=== PATIENT | male | born 1955 | race Caucasian/White ===

== ENCOUNTER 2017-01-09 12:05 | Inpatient (IN) ==
[2017-01-09] MEDS ORDERED: CeFAZolin Pre 2,000 MG/100 ML 2,000 MG/100 ML BAG IVPB ONE (13:02)
[2017-01-09] MEDS ORDERED: CeFAZolin Pre 3,000 MG/100 ML 3,000 MG/100 ML BAG IVPB ONE (13:08)
[2017-01-09] MEDS ORDERED: Ringers Solution, Lactated 1,000 ML IVC SCH ×2 (13:15→16:11)
--- NOTE | 2017-01-09 13:16 | History & Physical Report ---
Date of Encounter: 01/09/17 Time of Encounter: 13:16 24 Hour HP Update - Instructions Instructions: If the History and Physical is less than 30 days old and was completed prior to A.M. admission and or procedure and has NOT been updated on calendar day of procedure please complete this update prior to performing procedure. - Update Patient reports changes in Medical Condition: No Changes in examination, assessment, or condition: No Changes in Medication: No Preop tests/diagnostics Reviewed: Yes Surgery Remains Indicated: Yes Consent for Planned Operative Procedure(s) Verified: Yes - Pre-Operative Checklist Preoperative Checklist Indicated: No Prophylactic Antibiotic Ordered: Yes Is VTE Prophylaxis Indicated?: NO
[2017-01-09] MEDS ORDERED: Ondansetron 4 MG/2 ML VIAL ONE (13:21)
[2017-01-09] MEDS ORDERED: *HR* HYDROmorphone (PF) 1 MG/ML SYRINGE IVP PRN ×2 (13:21→16:11)
[2017-01-09] MEDS ORDERED: *HR* Promethazine 25 MG/ML VIAL IVP PRN (13:21)
[2017-01-09] MEDS ORDERED: Lidocaine -MPF 4% 5 ML AMPUL ONE (13:21)
[2017-01-09] MEDS ORDERED: Lidocaine -MPF 2% 2 ML VIAL ONE (13:21)
[2017-01-09] MEDS ORDERED: *HR* Succinylcholine 200 MG/10 ML VIAL IVP ONE (13:21)
[2017-01-09] MEDS ORDERED: *HR* FentaNYL (PF) 100 MCG/2 ML VIAL ONE (13:21)
[2017-01-09] MEDS ORDERED: *HR* Labetalol 20 MG/4 ML SYRINGE IVP PRN (13:21)
[2017-01-09] MEDS ORDERED: Dexamethasone 4 MG/ML VIAL ONE ×2 (13:21→13:34)
[2017-01-09] MEDS ORDERED: *HR* Propofol 200 MG/20 ML VIAL IVP ONE (13:21)
[2017-01-09] MEDS ORDERED: Acetaminophen IV 1,000 MG/100 ML INFUS..BTL IVPB ONE (13:23)
[2017-01-09] MEDS ORDERED: Albuterol 2.5 MG/3 ML NEBULIZER ONE (13:23)
[2017-01-09] MEDS ORDERED: *HR* Midazolam HCl 2 MG/2 ML VIAL ONE (13:25)
--- NOTE | 2017-01-09 13:25 | Discharge Summary ---
Date of Encounter: 01/09/17 Time of Encounter: 16:41 - Discharge Diagnosis (1) Rotator cuff tear arthropathy of right shoulder Priority: Primary Status: Chronic (2) Status post reverse total arthroplasty of right shoulder Priority: Primary Status: Acute (3) History of myocardial infarction Priority: Secondary Status: Chronic (4) Coronary artery disease Priority: Secondary Status: Chronic Qualifiers: Coronary Disease-Associated Artery/Lesion type: unspecified vessel or lesion type [place] vs. transplanted heart: [place] heart Associated angina: angina presence unspecified Qualified Code(s): I25.10 - Atherosclerotic heart disease of [place] coronary artery without angina pectoris (5) Hypertension Priority: Secondary Status: Chronic Qualifiers: Hypertension type: unspecified secondary hypertension Qualified Code(s): I15.9 - Secondary hypertension, unspecified; I15 - Secondary hypertension (6) Hyperlipidemia Priority: Secondary Status: Chronic Qualifiers: Hyperlipidemia type: other hyperlipidemia Qualified Code(s): E78.4 - Other hyperlipidemia (7) Obesity (BMI 35.0-39.9 without comorbidity) Priority: Secondary Status: Chronic (8) Thyroid disease Priority: Secondary Status: Chronic (9) Type 2 diabetes mellitus Priority: Secondary Status: Chronic Qualifiers: Diabetes mellitus complication status: without complication Diabetes mellitus residential insulin use: unspecified residential insulin use status Qualified Code(s): E11.9 - Type 2 diabetes mellitus without complications - Discharge Medications Prescriptions: OxyCODONE Immed Rel [Roxicodone 5 MG] 5 mg PO Q4HR PRN #24 tablet PRN Reason: Pain Home Medications: Albuterol Neb [Proventil Neb] 2.5 mg IH BID PRN 01/09/17 [History] Albuterol Sulfate [Albuterol Inhaler] 2 puff IH Q4HR PRN 01/09/17 [History] Aripiprazole [Abilify] 30 mg PO DAILY 01/09/17 [History] Aspirin 325 mg PO DAILY 01/09/17 [History] Atorvastatin [Lipitor] 40 mg PO HS 01/09/17 [History] Benztropine [Cogentin] 1 mg PO BID 01/09/17 [History] Brimonidine Tartrate [Alphagan P] 1 drop BOTH EYES BID 01/09/17 [History] Cetirizine HCl [All Day Allergy] 10 mg PO DAILY 01/09/17 [History] Cholecalciferol (D-3) [Vitamin D] 1,000 unit PO DAILY 01/09/17 [History] DiphenhydraMINE [Benadryl] 25 mg PO DAILY PRN 01/09/17 [History] Furosemide [Lasix] 20 mg PO DAILY 01/09/17 [History] Gabapentin [Neurontin] 600 mg PO TID 01/09/17 [History] Insulin ASPART [NovoLOG] 10 unit SQ QPM 01/09/17 [History] Insulin ASPART [NovoLOG] 22 unit SQ BID 01/09/17 [History] Insulin Glargine [Lantus] 50 unit SQ BID 01/09/17 [History] Latanoprost [Xalatan] 1 drop BOTH EYES HS 01/09/17 [History] Levothyroxine [Synthroid] 112 mcg PO 0630 01/09/17 [History] Lidocaine Patch [Lidoderm 5% patch] 1 each TP DAILY 01/09/17 [History] Lisinopril [Zestril] 40 mg PO DAILY 01/09/17 [History] Magnesium Oxide [Magnesium] 400 mg PO BID 01/09/17 [History] Metformin HCl [Glucophage] 1,000 mg PO BID 01/09/17 [History] Metoprolol XL (24 HR) Succ [Toprol Xl] 75 mg PO DAILY 01/09/17 [History] Morphine Sulfate [Arymo ER] 15 mg PO Q8H PRN 01/09/17 [History] Nitroglycerin [Nitrostat] 0.4 mg SL Q5M PRN 01/09/17 [History] Omeprazole 40 mg PO DAILY 01/09/17 [History] OxyCODONE Immed Rel [Roxicodone 5 MG] 5 mg PO Q4HR PRN #24 tablet 01/09/17 [Rx] Polyethylene Glycol 3350 [MiraLAX] 17 gm PO DAILY 01/09/17 [History] Spironolactone [Aldactone] 25 mg PO DAILY 01/09/17 [History] Tiotropium [Spiriva] 18 mcg IH 0700 01/09/17 [History] Zolpidem [Ambien] 10 mg PO HS PRN 01/09/17 [History] Allergies/Adverse Reactions: 3 Allergy/AdvReac Type Severity Reaction Status Date / Time morphine AdvReac Itching Verified 01/09/17 13:42 [facility]: [facility] - Patient Status Disposition: Home, Self-Care Condition: Good Functional capacity at discharge: independent ambulation Overall status at discharge: patient is progressing back to baseline - Discharge Instructions Follow Up With: GURU,PCP [Primary Care Provider] - - Hospital Course Hospital course: Mr. Caballero is a 61 year old male Status post right total shoulder replacement reverse discharged same day received antibiotic and injection of Lovenox - Time Spent with Patient Total time spent providing and/or coordinating discharge services:
--- NOTE | 2017-01-09 13:26 | Anesthesia Evaluation PreOp ---
Date of Encounter: 01/09/17 Time of Encounter: 13:23 - Past History Planned Operation: R-total shoulder Cardiac History: ID ( 2012 did not seek treatment at that time.), HTN ( maintained on Lisinopril, Spironolactone), Hyperlipidemia (maintained on Simvastatin), Other (ECHO 02/16/2016 - LVEF 50-55%. Atypical septal motion c/w BBB. Atypical septal, inferior, mid=anterior wall motion w/ Hypokinesis. Pt states recent visit with Investment Banker indicated his heart was doing "much better than before") Pulmonary History: Former smoker (2ppd x 40yrs. 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 HX Other Medical History: Diabetes Type II (maintained on Lantus, Insulin, NovoFine ), Thyroid (maintained on Synthroid), GERD (Ulcerative Colitis) Anesthesia History: No Prior Anesthetic Complications, Past Anesthesia (L- ganglions cyst excision, R-shoulder scope/SAD/DCR) Alcohol Use: none Drug use: none Medications and Allergies Clindamycin [Cleocin] 150 mg PO Q6HR #8 capsule 09/20/15 [Rx] OxyCODONE Immed Rel [Roxicodone 5 MG] 5 - 10 mg PO Q6HR PRN #30 tablet 09/20/15 [Rx] 3 Allergy/AdvReac Type Severity Reaction Status Date / Time No Known Allergies Allergy Verified 01/31/15 11:47 - Meds/Allergy Pre-op Review Medications Reviewed: Yes Allergies Reviewed: Yes Beta Blockers on Current Med List: No Anesthesia Results - Labs Laboratory Tests 01/02/17 01/02/17 01/02/17 13:57 13:57 13:57 WBC 9.5 Hgb 15.0 Hct 43.3 Plt Count 102 L PT 11.7 INR 1.1 APTT 32.0 Sodium 134 L Potassium 4.2 Chloride 99 Carbon Dioxide 29 BUN 12 Creatinine 1.07 Est GFR (Non-Af Amer) > 60 POC Glucose Est Mean Plasma Glucose Hemoglobin A1c 01/02/17 01/09/17 13:57 12:25 WBC Hgb Hct Plt Count PT INR APTT Sodium Potassium Chloride Carbon Dioxide BUN Creatinine Est GFR (Non-Af Amer) POC Glucose 212 H Est Mean Plasma Glucose 183 Hemoglobin A1c 8.0 H Anesthesia Exam O2 Sat Height 1.83 m Height 1.83 m Weight 128.367 kg Weight 128.367 kg O2 Sat by Pulse Oximetry 96 Vital Signs Temp Pulse Resp BP Pulse Ox 98.2 F 75 18 112/73 96 01/09/17 12:28 01/09/17 12:28 01/09/17 12:28 01/09/17 12:28 01/09/17 12:28 Height: 6'0" Weight: 283# BMI = 38 - HEENT Pupil (Motor): Pupils equal, EOMI Mallampati: III Teeth: Edentulous Oral Opening: Greater than 3 - 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 Ary Chang MD
[2017-01-09] MEDS ORDERED: Albuterol 2.5 MG/3 ML NEBULIZER IH ONE (13:28)
[2017-01-09] MEDS ORDERED: Bupivacaine/Clonidine Syringe 1 EACH SYRINGE ONE (13:36)
[2017-01-09] MEDS ORDERED: ROPIVACAINE HCL/PF 0.5% 30 ML VIAL ONE (13:37)
--- NOTE | 2017-01-09 14:06 | Anesthesia Procedures ---
Date of Encounter: 01/09/17 Time of Encounter: 14:00 Procedures: Anesthesia - Nerve Block Procedure Date: 01/09/17 Time: 14:00 Allergies/Adv Reactions: MORPHINE Pre-op Diagnosis: RIGHT SHOULDER ARTHRITIS Surgical Procedure: RIGHT TOTAL SHOULDER Checklist: Correct Patient Identifier, Correct procedure, History checked Correct side: Right Blood Thinner: No Monitor Applied: EKG, BP, Pulse Oximetry Supplemental Oxygen via Nasal Cannula (L/min): 2 Sedation: Versed (mg): 2 Sedation: Fentanyl (mcg): 100 Indication: Post Op Analgesia Pre-op Neuro Deficits: No Block Type: Supraclavicular (ICB/SCP) Catheter placed: No Sterile Technique: Yes Ultrasound used: Yes Anatomy identified: Yes Visual spread of Local: Yes Neuro Stimulation: Yes Nerve Stimulator Range: 0.2 - 0.4 mA Blood on Needle Aspiration: No Smooth Injection of Local: Yes Pain with Injection of Local: No Prep: Chlorhexadine Needle: 22 x 50 mm Stimuplex Local: 0.25% Bupivicaine w/Clonidine 20 mcg/cc (ICB/SCP), Ropivacaine (SCB) Volume (cc): 50ML Number of Attempts: 1 Complications: None/effective block Vitals: Vital Signs - Last 8 Hours Temp Pulse Resp BP Pulse Ox 01/09/17 14:02 66 16 136/75 94 01/09/17 13:53 65 15 120/71 93 01/09/17 12:28 98.2 F 75 18 112/73 96 Intake and Output 01/08/17 01/09/17 01/09/17 23:59 07:59 15:59 Other: Weight 128.367 kg Blood Glucose* 212 Patient Weight 01/09/17 23:59 Weight 128.367 kg Comments: PER DR. MACE REQUEST
[2017-01-09] MEDS ORDERED: EPHEDrine 50 MG/ML VIAL ONE (14:58)
--- NOTE | 2017-01-09 15:11 | Orthopedic Operative Note ---
Date of procedure: 01/09/17 Pre-op diagnosis: Right Shoulder cuff tear arthropathy Post-op diagnosis: same Procedure: Procedure: Total Shoulder Replacment Reverse, right Estimated blood loss: 100 cc Hardware: Metal and polyethylene replacement: Arthrex large glenoid baseplate, 2 4.5 screws. 1 6.5 screw, 42+4 glenosphere, 12 humeral stem, poly insert 3 and 9 metal Exam Under anesthesia: Full motion and no stability Procedural Notes: Irreparable tear supraspinatus tendon Operative procedure: The patient was brought to the operating room and placed on the operating room table. After general anesthesia was administered the operative shoulder was examined. Findings were noted. The patient was placed in the modified beachchair position. All pressure points were padded appropriately. And the head was stabilized in the neutral position. The operative extremity was prepped and draped in the sterile surgical fashion. The patient received IV antibiotics prior to skin incision. A standard deltopectoral approach was made to the operative shoulder. Incision was made to the skin and subcutaneous tissue,hemo stasis was obtained with Bovie cautery. Using careful blunt dissection the cephalic vein was identified and mobilized medially. The deltopectoral interval was developed and the clavipectoral fascia was incised. The subscap was released off the lesser tuberosity and tagged with #2 FiberWire suture. Subscap was irreparable. The humerus was dislocated patient noted to have irreparable tear supraspinatus tendon, and the humeral cut was made along the anatomic neck. Anterior and posterior Bankart retractors were placed to expose the glenoid. The glenoid guide was seated and the centering hole was made. It was reamed with the appropriate reamer. The large baseplate was seated and secured with (2) 4.5 screws and one 6.5 screw. The baseplate was irrigated and dried and the 42+4 Glenosphere was seated and secured with the Art taper. The Art taper was tested and found to be secure the humerus was redislocated and prepared with the diaphyseal reamers, followed by a broaching process up to the appropriate size 12 in the patient's anatomic version. The metaphyseal reamer was then utilized. Trial reduction found the shoulder to be relocatable. Trial components were removed and the appropriate 12 stem was impacted in place in the patient's anatomic version. Trial reduction found the shoulder to be relocatable and stable with the appropriate 9 metal 3 Loly. Trial component was removed and the real implants was seated and secured the shoulder was reduced. The shoulder had excellent motion and excellent stability and no evidence of dislocation. The deep tissue was irrigated with pulse irrigation. The deltopectoral interval was closed with a running #1 PDS suture, subcutaneous tissue was irrigated and closed with 0 PDS suture, the skin was closed with Dermabond. The patient was placed in a sterile dressing, abduction brace and extubated. The patient was then transferred to the recovery room in stable condition. Anesthesia: GETNora Surgeon: Saad Rajan Condition: stable Disposition: PACU
--- NOTE | 2017-01-09 15:47 | Anesthesia Evaluation Post Op ---
Date of Encounter: 01/09/17 Time of Encounter: 15:48 - Vital Signs Vital Signs: Vital Signs - Last 8 Hours Temp Pulse Resp BP Pulse Ox 01/09/17 15:30 84 18 126/66 98 01/09/17 15:20 97.6 F 80 18 126/78 99 01/09/17 14:02 66 16 136/75 94 01/09/17 13:53 65 15 120/71 93 01/09/17 12:28 98.2 F 75 18 112/73 96 Intake and Output 01/08/17 01/09/17 01/09/17 23:59 07:59 15:59 Output Total 100 / 100 Balance -100 / -100 Output: Estimated Blood Loss 100 / 100 Other: Weight 128.367 kg Blood Glucose* 212 Patient Weight 01/09/17 23:59 Weight 128.367 kg - Lungs Lungs: Clear Ascult./Percussion - Airway Airway: Non-obstructed - Cardiovascular Regular Rate, Baseline Rhythm - Mental Status Mental Status: Alert & Oriented, Answers Appropriately - Pain Pain Scale: 0 Pain Scale used: Numeric (1 - 10) - Nausea Vomiting Nausea Vomiting: Not Present - Hydration Hydration: Tolerates oral liquids - Discharge PostOp Status: Transfer Patient to floor
[2017-01-09 15:58] LABS: Hematocrit 40.9 % (37.5-50.1); Hemoglobin 13.7 g/dL (12.9-16.9)
[2017-01-09] MEDS ORDERED: Naloxone 0.4 MG/ML INJ IVP PRN (16:11)
[2017-01-09] MEDS ORDERED: Dextrose Gel 15 GM PO PRN ×2 (16:11)
[2017-01-09] MEDS ORDERED: Temazepam 15 MG CAPSULE PO PRN (16:11)
[2017-01-09] MEDS ORDERED: *HR* Morphine Sulfate SR (12 HR) 15 MG TABLET.ER PO PRN (16:11)
[2017-01-09] MEDS ORDERED: Nitroglycerin 0.4 MG TAB.SUBL SL PRN (16:11)
[2017-01-09] MEDS ORDERED: *HR* Dextrose 50 % in Water (Syg) 50 ML SYRINGE IVP PRN (16:11)
[2017-01-09] MEDS ORDERED: Sennosides 8.6 MG TABLET PO PRN (16:11)
[2017-01-09] MEDS ORDERED: Albuterol 2.5 MG/3 ML NEBULIZER IH PRN (16:11)
[2017-01-09] MEDS ORDERED: Gabapentin 300 MG CAPSULE PO SCH (16:11)
[2017-01-09] MEDS ORDERED: Ondansetron 4 MG/2 ML VIAL IVP PRN (16:11)
[2017-01-09] MEDS ORDERED: *HR* OxyCODONE Immed Rel 5 MG TABLET PO PRN ×2 (16:11)
[2017-01-09] MEDS ORDERED: D5% in Water 1,000 ML IVC PRN (16:11)
[2017-01-09] MEDS ORDERED: MOM Conc 10 ML UD.LIQ PO PRN (16:11)
[2017-01-09] MEDS ORDERED: Insulin LISPRO 300 UNITS/3 ML VIAL SQ SCH ×4 (16:30→21:00)
[2017-01-09] MEDS ORDERED: *HR* Metformin 500 MG TABLET PO SCH (17:00)
[2017-01-09 17:50] VITALS: BP 123/71
[2017-01-09] MEDS ORDERED: *HR* Enoxaparin 30 MG/0.3 ML SYRINGE SQ SCH ×2 (18:00)
[2017-01-09] MEDS ORDERED: ceFAZolin 2,000 MG in D5% in Water 100 ML IVPB SCH (19:00)
[2017-01-09] MEDS ORDERED: Insulin DETEMIR 100 UNIT/ML X5UNITS SQ SCH (21:00)
[2017-01-09] MEDS ORDERED: Magnesium Oxide 400 MG TABLET PO SCH (21:00)
[2017-01-09] MEDS ORDERED: Latanoprost 2.5 ML BOTTLE BOTH EYES SCH (21:00)
[2017-01-10] MEDS ORDERED: Tiotropium 18 MCG inhalation IH SCH (07:00)
[2017-01-10] MEDS ORDERED: Furosemide 20 MG TABLET PO SCH (09:00)
[2017-01-10] MEDS ORDERED: Spironolactone 25 MG TABLET PO SCH (09:00)
[2017-01-10] MEDS ORDERED: Cholecalciferol (D-3) 1,000 UNIT TABLET PO SCH (09:00)
[2017-01-10] MEDS ORDERED: Loratadine 10 MG TABLET PO SCH (09:00)
[2017-01-10] MEDS ORDERED: Lisinopril 20 MG TABLET PO SCH (09:00)
[2017-01-10] MEDS ORDERED: Aspirin 325 MG TABLET PO SCH (09:00)
[2017-01-10] MEDS ORDERED: ARIPiprazole 10 MG TABLET PO SCH (09:00)
[2017-01-10] MEDS ORDERED: Metoprolol XL (24 HR) Succ 50 MG TAB.ER.24H PO SCH (09:00)
== END 2017-01-09 18:54 | disposition home or self-care (01) | DRG 483 ==
LOC: SAMDAY 12:05 → 3NENU 12:17
PROVIDERS: ADMIT Orthopaedic Surgery; ATTEND Orthopaedic Surgery